=== PATIENT | female | born 1990 | race Two or more races ===

== ENCOUNTER 2020-07-12 13:54 | Outpatient (REF) | payer OTHER, SELFPAY ==
[2020-07-12 14:14] LABS: COVID-19 Test Negative (Negative)
== END 2020-07-12 13:55 | disposition home or self-care (01) ==
LOC: HO.LAB 13:54
PROVIDERS: Visit Provider Internal Medicine
DX: Z20.822 Contact with and (suspected) exposure to COVID-19 (principal)
CPT/HCPCS: 36415; 87635; C9803

== ENCOUNTER 2020-07-17 09:29 | Emergency (ER) | payer OTHER, SELFPAY ==
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
[2020-07-17 09:34] VITALS: BP 143/97; PULSE 94; RESP 18; TEMP 36.7; O2SAT 100
[2020-07-17 09:43] VITALS: BP 141/102; PULSE 96; RESP 19; TEMP 36.6; O2SAT 99; BMI 32.5
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
[2020-07-17 10:00] VITALS: BP 114/74; PULSE 69; RESP 17; TEMP 36.6; O2SAT 99
[2020-07-17] MEDS: Acetaminophen 325 MG TABLET 975 MG PO (10:22)
[2020-07-17] MEDS: Diphth,Pertus(ACell),Tet Adult 0.5 ML SYRINGE IM (10:24)
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
[2020-07-17] MEDS: Lidocaine HCl 1 % MPF 5 ML VIAL 10 ML INFILTRATI (11:38)
== END 2020-07-17 12:33 | disposition home or self-care (01) ==
PROVIDERS: Emergency Provider Emergency Medicine Emergency Medical Services
DX: S71.112A Laceration without foreign body, left thigh, initial encounter (principal); S00.83XA Contusion of other part of head, initial encounter; S09.90XA Unspecified injury of head, initial encounter; S00.03XA Contusion of scalp, initial encounter; G44.309 Post-traumatic headache, unspecified, not intractable; M79.652 Pain in left thigh; Y04.8XXA Assault by other bodily force, initial encounter; Y93.9 Activity, unspecified; Y92.009 Unspecified place in unspecified non-institutional (private) residence as the place of occurrence of the external cause; Y99.9 Unspecified external cause status; Y92.531 Health care provider office as the place of occurrence of the external cause
CPT/HCPCS: 12001; 70450; 70486; 90471; 90715; 99284

== ENCOUNTER 2021-12-31 10:33 | Emergency (ER) | payer OTHER, SELFPAY ==
[2021-12-31 11:06] VITALS: BP 147/95; PULSE 80; RESP 18; TEMP 36.6; O2SAT 98; BMI 32.5
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
--- OUTSIDE RECORDS SUMMARY | 2021-12-31 11:48 | XMS_ITS | Continuity of Care Document ---
:1990 Author Organization [facility] [place] Address [address] [place] [id number]- Care Team Providers Name Role Phone Fazal CARVAJAL, Lico August Primary Care Physician Unavailable Encounter [facility] Date(s): 05/06/21 - 06/15/[address] [id number]- Attending Physician: Carrie Clark NP Admitting Physician: Carrie Clark NP Referring Physician: Carrie Clark NP
--- OUTSIDE RECORDS SUMMARY | 2021-12-31 11:48 | XMS_ITS | Continuity of Care Document ---
:1990 Author Organization [facility] Address [address] [place] [id number]- Care Team Providers Name Role Phone Not on Staff, PCP Primary Care Physician Unavailable Encounter [facility] Date(s): 05/20/21 - 07/06/[address] [id number] Attending Physician: Carrie Clark NP Admitting Physician: Carrie Clark NP Referring Physician: Carrie Clark NP
== END 2021-12-31 12:07 | disposition home or self-care (01) ==
PROVIDERS: Emergency Provider Emergency Medicine; PCP Internal Medicine
DX: T25.222A Burn of second degree of left foot, initial encounter (principal); T31.0 Burns involving less than 10% of body surface; X12.XXXA Contact with other hot fluids, initial encounter; Y93.9 Activity, unspecified; Y92.009 Unspecified place in unspecified non-institutional (private) residence as the place of occurrence of the external cause; Y99.9 Unspecified external cause status
CPT/HCPCS: 16025; 99283